=== PATIENT | male | born 1965 | race Caucasian/White ===

== ENCOUNTER 2022-12-13 19:32 | Inpatient (IN) | payer OTHER ==
[2022-12-13 20:13] LABS: ALT (SGPT) 23 U/L (8-55); AST (SGOT) 24 U/L (5-34); Albumin 3.7 g/dL (3.5-5.0); Alkaline Phosphatase 53 U/L (40-110); Anion Gap 15 mmol/L (10-20); BUN (Urea Nitrogen) 16 mg/dL (8.4-25.7); Bilirubin, Total 0.3 mg/dL (0.2-1.2); Calc. Creatinine Clearance 0 mL/min (70-130); Calcium 8.7 mg/dL (7.8-10.44); Carbon Dioxide 24 mmol/L (22-29); Chloride 108 mmol/L (98-107); Estimated GFR 83; Glucose 103 mg/dL (70-105); Potassium 4.5 mmol/L (3.5-5.1); Protein, Total 6.7 g/dL (6.0-8.3); Sodium 142 mmol/L (136-145)
[2022-12-13] MEDS ORDERED: Meclizine HCl 25 MG TAB ONE ×2 (20:13→21:49)
[2022-12-13] MEDS ORDERED: Ondansetron PF 4 MG/2 ML Vial ONE (20:13)
[2022-12-13 20:21] LABS: #Basophils 0.1 10x3/uL (0.0-0.2); #Eosinphils 0.3 10x3/uL (0.0-0.5); #Monocytes 0.6 10x3/uL (0.0-1.1); %Basophils 0.9 % (0.0-2.0); %Eosinophils 3.5 % (0.0-6.0); %Lymphocytes 20.2 % (18.0-47.0); %Neutrophils 68.1 % (40.0-75.0); Mean Corpuscular HGB CONC 33.7 g/dL (32.0-36.0); Mean Corpuscular Volume 92.1 fl (81.2-95.1); Mean Platelet Volume 10.2 fl (7.4-10.4); Platelet Count 219 10x3/uL (150-450); RBC Distribution Width 12.6 % (11.5-14.5); Red Blood Cell (RBC) Count 4.19 10x6/uL (4.32-5.72); White Blood Cell (WBC) Count 8.8 10x3/uL (3.5-10.5)
[2022-12-13 22:58] LABS: SARS-CoV-2 NAA Rapid Test Not Detected (NotDetected)
[2022-12-14] MEDS ORDERED: Ondansetron ODT 4 MG TAB PO PRN (01:31)
[2022-12-14] MEDS ORDERED: Ondansetron PF 4 MG/2 ML Vial IVP PRN (01:31)
[2022-12-14 01:32] VITALS: BMI 34.3
[2022-12-14] MEDS ORDERED: Ventolin HFA Inhaler 60 PUFF INHALER INH PRN (02:15)
[2022-12-14 02:26] LABS: Troponin I Less than 0.010 ng/mL (< 0.028)
[2022-12-14] MEDS: Sodium Chloride 0.9% 1,000 ML IV SCH ×2 (02:27→14:11)
[2022-12-14] MEDS ORDERED: Perphenazine 2 MG TAB PO SCH (02:30)
[2022-12-14] MEDS ORDERED: methylPREDNISolone Sod Succ 40 MG VIAL IVP SCH (02:30)
[2022-12-14] MEDS ORDERED: levETIRAcetam 500 MG TAB PO SCH (02:30)
[2022-12-14] MEDS ORDERED: Ketorolac Tromethamine 30 MG/ML VIAL IVP SCH (02:30)
[2022-12-14] MEDS ORDERED: diphenhydrAMINE 50 MG/ML VIAL IVP SCH (02:30)
[2022-12-14] MEDS ORDERED: Metoprolol Tartrate 25 MG TAB PO SCH (02:30)
[2022-12-14] MEDS: cefTRIAXone\\ROCEPHIN 1 GM in Sodium Chloride 0.9% 100 ML IVPB SCH ×2 (02:57→02:58)
[2022-12-14] MEDS: Levothyroxine Sodium 25 MCG TAB PO SCH (06:23)
[2022-12-14] MEDS: Mometasone 100 MCG/PUFF (1 INHALER) INH SCH ×2 (07:50→18:56)
[2022-12-14] MEDS ORDERED: Non-Formulary Medication 1 EACH (Ipratropium 200 PUFF Inh) PO SCH (09:00)
[2022-12-14] MEDS: Lisinopril 10 MG TAB PO SCH (09:28)
[2022-12-14] MEDS: Finasteride 5 MG TAB PO SCH (09:28)
[2022-12-14] MEDS: Fluticasone Propionate Nasal Spray 16 gm Bottle NASAL SCH (09:29)
[2022-12-14] MEDS ORDERED: Magnevist 469MG/ML 20 ML VIAL ONE (10:25)
[2022-12-14] MEDS: Acetaminophen 325 MG TAB PO PRN (16:53)
[2022-12-14] MEDS ORDERED: Ibuprofen 200 MG TAB PO SCH (22:00)
[2022-12-14] MEDS: Terazosin HCl 5 MG CAP PO SCH (23:27)
[2022-12-14] MEDS: Perphenazine 2 MG TAB PO SCH (23:28)
[2022-12-14] MEDS: levETIRAcetam 500 MG TAB PO SCH (23:28)
[2022-12-14] MEDS: Metoprolol Tartrate 25 MG TAB PO SCH (23:30)
[2022-12-15] MEDS: Sodium Chloride 0.9% 1,000 ML IV SCH ×2 (03:03→08:41)
[2022-12-15] MEDS: cefTRIAXone\\ROCEPHIN 1 GM in Sodium Chloride 0.9% 100 ML IVPB SCH (03:03)
[2022-12-15] MEDS: Levothyroxine Sodium 25 MCG TAB PO SCH (06:23)
[2022-12-15] MEDS: Fluticasone Propionate Nasal Spray 16 gm Bottle NASAL SCH (08:41)
[2022-12-15] MEDS: Metoprolol Tartrate 25 MG TAB PO SCH ×2 (08:41→21:46)
[2022-12-15] MEDS: levETIRAcetam 500 MG TAB PO SCH ×2 (08:41→21:46)
[2022-12-15] MEDS: Finasteride 5 MG TAB PO SCH (08:42)
[2022-12-15] MEDS: Lisinopril 10 MG TAB PO SCH (08:42)
[2022-12-15] MEDS: Mometasone 100 MCG/PUFF (1 INHALER) INH SCH ×2 (09:14→19:28)
[2022-12-15] MEDS ORDERED: Meclizine HCl 12.5 MG TAB PO PRN (11:59)
[2022-12-15] MEDS: Acetaminophen 325 MG TAB PO PRN (21:45)
[2022-12-15] MEDS: Terazosin HCl 5 MG CAP PO SCH (21:46)
[2022-12-15] MEDS: Amoxicillin/Potassium Clav 875 MG TAB PO SCH (21:46)
[2022-12-15] MEDS: Perphenazine 2 MG TAB PO SCH (21:47)
[2022-12-16 05:13] LABS: Hemoglobin 11.6 g/dL (13.5-17.5); Mean Corpuscular HGB CONC 33.3 g/dL (32.0-36.0); Mean Corpuscular Hemoglobin 31.2 pg (27.0-33.0); Mean Corpuscular Volume 93.5 fl (81.2-95.1); Mean Platelet Volume 10.1 fl (7.4-10.4); Platelet Count 185 10x3/uL (150-450); RBC Distribution Width 12.6 % (11.5-14.5); Red Blood Cell (RBC) Count 3.72 10x6/uL (4.32-5.72); White Blood Cell (WBC) Count 8.5 10x3/uL (3.5-10.5)
[2022-12-16 05:33] LABS: Anion Gap 10 mmol/L (10-20); BUN (Urea Nitrogen) 21 mg/dL (8.4-25.7); Calc. Creatinine Clearance 158 mL/min (70-130); Calcium 8.4 mg/dL (7.8-10.44); Carbon Dioxide 29 mmol/L (22-29); Chloride 106 mmol/L (98-107); Estimated GFR 101; Glucose 99 mg/dL (70-105); Potassium 3.8 mmol/L (3.5-5.1); Sodium 141 mmol/L (136-145)
[2022-12-16] MEDS: Levothyroxine Sodium 25 MCG TAB PO SCH (05:55)
[2022-12-16] MEDS: Mometasone 100 MCG/PUFF (1 INHALER) INH SCH ×2 (06:25→15:50)
[2022-12-16] MEDS: Lisinopril 10 MG TAB PO SCH (10:38)
[2022-12-16] MEDS: levETIRAcetam 500 MG TAB PO SCH ×2 (10:39→20:30)
[2022-12-16] MEDS: Finasteride 5 MG TAB PO SCH (10:39)
[2022-12-16] MEDS: Amoxicillin/Potassium Clav 875 MG TAB PO SCH ×2 (10:39→20:30)
[2022-12-16] MEDS: Metoprolol Tartrate 25 MG TAB PO SCH ×2 (10:40→20:30)
[2022-12-16] MEDS: Fluticasone Propionate Nasal Spray 16 gm Bottle NASAL SCH (10:47)
[2022-12-16] MEDS: Acetaminophen 325 MG TAB PO PRN (15:04)
[2022-12-16] MEDS ORDERED: Ventolin HFA Inhaler 60 PUFF INHALER ONE (19:40)
[2022-12-16] MEDS: Perphenazine 2 MG TAB PO SCH (20:30)
[2022-12-16] MEDS: Terazosin HCl 5 MG CAP PO SCH (20:30)
[2022-12-17] MEDS: Levothyroxine Sodium 25 MCG TAB PO SCH (05:48)
[2022-12-17] MEDS: Mometasone 100 MCG/PUFF (1 INHALER) INH SCH ×2 (08:03→19:50)
[2022-12-17] MEDS: Acetaminophen 325 MG TAB PO PRN ×2 (08:19→16:37)
[2022-12-17] MEDS: Metoprolol Tartrate 25 MG TAB PO SCH ×2 (08:21→20:25)
[2022-12-17] MEDS: Lisinopril 10 MG TAB PO SCH (08:21)
[2022-12-17] MEDS: levETIRAcetam 500 MG TAB PO SCH ×2 (08:21→20:25)
[2022-12-17] MEDS: Finasteride 5 MG TAB PO SCH (08:21)
[2022-12-17] MEDS: Fluticasone Propionate Nasal Spray 16 gm Bottle NASAL SCH (08:27)
[2022-12-17] MEDS: Amoxicillin/Potassium Clav 875 MG TAB PO SCH ×2 (08:28→20:25)
[2022-12-17 17:31] VITALS: TEMP 97.9
[2022-12-17] MEDS: Perphenazine 2 MG TAB PO SCH (20:25)
[2022-12-17] MEDS: Terazosin HCl 5 MG CAP PO SCH (20:25)
[2022-12-17 22:40] VITALS: BP 135/84
== END 2022-12-17 20:50 | DRG 149 ==
LOC: CSHERS 19:32 → EEVIPCON 19:32 → CSHTELE 23:17 → OBSVTOIN 12-15 08:39
PROVIDERS: ADMIT Family Medicine; ATTEND Family Medicine
DX: H81.10 Benign paroxysmal vertigo, unspecified ear (principal); J01.90 Acute sinusitis, unspecified; I95.1 Orthostatic hypotension; G43.909 Migraine, unspecified, not intractable, without status migrainosus; J44.9 Chronic obstructive pulmonary disease, unspecified; G40.909 Epilepsy, unspecified, not intractable, without status epilepticus; I10 Essential (primary) hypertension; N40.0 Benign prostatic hyperplasia without lower urinary tract symptoms; E03.9 Hypothyroidism, unspecified; B18.2 Chronic viral hepatitis C; F31.9 Bipolar disorder, unspecified; Z20.822 Contact with and (suspected) exposure to COVID-19; Z91.013 Allergy to seafood; Z88.8 Allergy status to other drugs, medicaments and biological substances; Z79.51 Long term (current) use of inhaled steroids; Z79.899 Other long term (current) drug therapy; Z87.891 Personal history of nicotine dependence
CPT/HCPCS: 36415; 70450; 70553; 71045; 80048; 80053; 83735; 84443; 84484; 85025; 85027; 85652; 93005; 93010; 93306; 93880; 94664; 94760; 94799; 96361; 96374; A9579; J0696; J1200; J1650; J1885; J2405; J2920; J3490; J7050; Q0175; U0002

== ENCOUNTER 2022-12-21 12:24 | Emergency (ER) | payer OTHER ==
[2022-12-21] MEDS ORDERED: Acetaminophen 500 MG TAB ONE (12:58)
[2022-12-21] MEDS ORDERED: Meclizine HCl 25 MG TAB ONE (12:58)
[2022-12-21] MEDS ORDERED: Prochlorperazine 10 MG/2 ML VIAL ONE (12:59)
[2022-12-21] MEDS ORDERED: Ketorolac Tromethamine 30 MG/ML VIAL ONE (12:59)
[2022-12-21 13:05] LABS: #Basophils 0.1 10x3/uL (0.0-0.2); #Eosinphils 0.2 10x3/uL (0.0-0.5); #Monocytes 0.9 10x3/uL (0.0-1.1); #Neutrophils 4.2 10x3/uL (1.5-8.4); %Eosinophils 2.8 % (0.0-6.0); %Lymphocytes 30.8 % (18.0-47.0); %Monocytes 11.5 % (0.0-10.0); %Neutrophils 53.4 % (40.0-75.0); Mean Corpuscular HGB CONC 33.7 g/dL (32.0-36.0); Mean Corpuscular Volume 91.9 fl (81.2-95.1); Mean Platelet Volume 9.7 fl (7.4-10.4); Platelet Count 192 10x3/uL (150-450); RBC Distribution Width 12.2 % (11.5-14.5); White Blood Cell (WBC) Count 7.9 10x3/uL (3.5-10.5)
[2022-12-21 13:22] LABS: ALT (SGPT) 32 U/L (8-55); AST (SGOT) 27 U/L (5-34); Albumin 3.8 g/dL (3.5-5.0); Alkaline Phosphatase 51 U/L (40-110); Anion Gap 15 mmol/L (10-20); BUN (Urea Nitrogen) 16 mg/dL (8.4-25.7); Bilirubin, Total 0.6 mg/dL (0.2-1.2); Calc. Creatinine Clearance 0 mL/min (70-130); Calcium 8.6 mg/dL (7.8-10.44); Carbon Dioxide 21 mmol/L (22-29); Chloride 108 mmol/L (98-107); Estimated GFR 102; Globulin 2.6 g/dL (2.4-3.5); Glucose 114 mg/dL (70-105); Potassium 4.4 mmol/L (3.5-5.1); Protein, Total 6.4 g/dL (6.0-8.3); Sodium 140 mmol/L (136-145)
== END 2022-12-21 15:18 | disposition home or self-care (01) ==
LOC: CSHERS 12:24
DX: R51.9 Headache, unspecified (principal); R42 Dizziness and giddiness; K21.9 Gastro-esophageal reflux disease without esophagitis; J44.9 Chronic obstructive pulmonary disease, unspecified; I10 Essential (primary) hypertension; G40.909 Epilepsy, unspecified, not intractable, without status epilepticus; Z79.899 Other long term (current) drug therapy
CPT/HCPCS: 71045; 80053; 84484; 85025; 93005; 96361; 96374; 96375; J0780; J1885